=== PATIENT | female | born 1965 | race Two or more races ===

== ENCOUNTER 2025-08-05 13:46 | Emergency (ER) | payer MEDICARE, OTHER ==
[~2025-08-05] VITALS: Ht 167.6 cm; Wt 84.6 kg
--- NOTE | 2025-08-05 14:25 | ED.PDOC ---
[place]. trauma (HPI) HPI Comments 59-year-old right handed female with a history of thyroid disease brought in by family complaining of a right 4th finger tip amputation after attempting to separate fighting dogs. Patient denies any other injuries, and family has brought the amputated fingertip on ice. Patient states pain is moderate, and family were states they gave her p.o. 5/325 mg Percocet prior to arrival. Patient denies any numbness, weakness or limited range of motion. Chief Complaint: S/P AMPUTATION OF FINGER Time Seen by MD: 14:20 Reviewed notes: Nurses Notes, Medications, Allergies Allergies: Coded Allergies: NO KNOWN ALLERGIES (Unverified , 08/05/25) Home Meds Active Scripts Hydrocodone-Acetaminophen (Hydrocodone Bitartrate/AC 5-325 mg) 1 Tab Tab, 1 TAB PO Q6HP PRN, #20 TAB Prn breakthrough pain Prov:KATLIN SAUCEDO MD 08/05/25 Ibuprofen Micronized (Ibuprofen) 800 Mg Tab, 800 MG PO Q8HP PRN, #30 TAB Prn pain. Take with food. Prov:KATLIN SAUCEDO MD 08/05/25 Amoxicillin & Pot Clavulanate (AUGMENTIN TABLET) 875 Mg Tb, 875 MG PO BID for 7 Days, #14 TAB Prov:KATLIN SAUCEDO MD 08/05/25 Information Source: Patient Mode of Arrival: Ambulatory Severity: Moderate Timing: Minutes Duration: Since onset Prehospital treatment: Pain Meds (percocet) Location: (R) Hand (4th digit) Location of laceration: None Mechanism: Other (dog bite) Associated signs and symtoms: None Past Medical History PAST MEDICAL HISTORY: Thyroid Past Medical History (Other): Right wrist fracture Surgical History: Tubal Ligation Surgical History (Other): Partial small bowel resection due to abdominal trauma [employer] History: Denies all [employer] Hx Family History Family History: Unknown Social History Smoker: Non-Smoker Alcohol: Denies ETOH Use Drugs: Denies Drug Use Lives In: Home Constitutional: denies: chills, diaphoresis, fatigue, fever, malaise, sweats, weakness, others EENTM: denies: blurred vision, double vision, ear bleeding, ear discharge, ear drainage, ear pain, ear ringing, eye pain, eye redness, hearing loss, mouth pain, mouth swelling, nasal discharge, nose bleeding, nose congestion, nose pain, photophobia, tearing, throat pain, throat swelling, voice changes, others Respiratory: denies: cough, hemoptysis, orthopnea, SOB at rest, shortness of breath, SOB with excertion, stridor, wheezing, others Cardiovascular: denies: chest pain, dizzy spells, diaphoresis, Dyspnea on exertion, edema, irregular heart beat, left arm pain, lightheadedness, palpitations, PND, syncope, others Gastrointestinal: denies: abdomen distended, abdominal pain, blood streaked bowels, constipated, diarrhea, dysphagia, difficulty swallowing, hematemesis, melena, nausea, poor appetite, poor fluid intake, rectal bleeding, rectal pain, vomiting, others Genitourinary: denies: abnormal vagina bleeding, burning, dyspareunia, dysuria, flank pain, frequency, hematuria, incontinence, pain, , vagina discharge, urgency, others Neurological: denies: dizziness, fainting, headache, left sided numbness, left sided weakness, numbness, paresthesia, pre-existing deficit, right sided numbness, right sided weakness, seizure, speech problems, tingling, tremors, weakness, others Musculoskeletal: reports: others (right 4th digit); denies: back pain, gout, joint pain, joint swelling, muscle pain, muscle stiffness, neck pain Integumetry: denies: bruises, change in color, change in hair/nails, dryness, laceration, lesions, lumps, rash, wounds, others Allergic/Immunocompromised: denies: Difficulty Healing, Frequent Infections, Hives, Itching, others Hematologic/Lymphatic: denies: anemia, blood clots, easy bleeding, easy bruising, swollen glands, others Endocrine: denies: excessive hunger, excessive sweating, excessive thirst, excessive urination, flushing, intolerance to cold, intolerance to heat, unexplained weight gain, unexplained weight loss, others Psychiatric: denies: anxiety, bipolar disorder, depression, hopeless, panic disorder, schizophrenia, sleepless, suicidal, others All Other Systems: Reviewed and Negative Physical Exam General Appearance: No Apparent Distress HEENT: Other (Pupils and face symmetric. Moist mucous membranes.) Neck: Full Range of Motion, Normal Inspection Respiratory: Lungs Clear, No Accessory Muscle Use, No Respiratory Distress, Normal Breath Sounds Cardiovascular: No Edema, No JVD, Regular Rate/Rhythm Breast Exam: Deferred Gastrointestinal: Non Tender, Soft Genitalia: Deferred Pelvic: Deferred Rectal: Deferred Extremities: Other (Right 4th finger tip/nail avulsion with tender open wound on the distal aspect of the 4th finger, no exposed bone visualized. No tendon injury noted. Right hand neurovascularly intact.) Neurologic: Alert (Oriented x4), Normal Affect, Normal Mood, Other (Ambulatory) Cerebellar Function: NOT DONE Reflexes: NOT DONE Skin: Dry, Normal Color, Warm Lymphatic: NOT DONE Was a procedure done? Was a procedure done?: Yes Sedation Sedation?: No Other Procedure Procedure Right 4th finger aluminum splint application Indication Right 4th finger proximal phalanx fracture and distal phalanx tuft fracture Success An aluminum splint was applied to the volar aspect of the right 4th finger to include stabilization of the MCP joint. The right hand was neurovascularly intact after the splint was applied. Differential Diagnosis Multiple Trauma: Other (Avulsion, fracture, dislocation, among others) Neck Injury: N/A X-Ray, Labs, Meds, VS Vital Signs Date Time Temp Pulse Resp B/P (MAP) Pulse Ox O2 Delivery O2 Flow Rate FiO2 08/05/25 16:00 97.8 65 12 120/66 (84) 95 97.8 08/05/25 14:47 65 11 136/64 08/05/25 14:29 Room Air* 0 21 08/05/25 14:00 100 16 136/64 (88) 93 08/05/25 13:48 98.2 104 18 118/98 97 98.2 Lab Test 08/05/25 14:39 Range/Units White Blood Count 4.7 4.4-10.8 10^3/uL Red Blood Count 4.10 4.0-5.20 10^6/uL Hemoglobin 11.9 L 12.2-16.2 g/dL Hematocrit 36.2 36.0-46.0 % Mean Corpuscular Volume 88.3 80.0-100.0 fL Mean Corpuscular Hemoglobin 29.1 28.0-32.0 pg Mean Corpuscular Hemoglobin Concent 32.9 32.0-36.0 g/dL Red Cell Distribution Width 14.4 H 11.8-14.3 % Platelet Count 269 140-450 10^3/uL Mean Platelet Volume 8.0 6.9-10.8 fL Neutrophils (%) (Auto) 52.4 37.0-80.0 % Lymphocytes (%) (Auto) 34.2 10.0-50.0 % Monocytes (%) (Auto) 9.6 0.0-12.0 % Eosinophils (%) (Auto) 2.8 0.0-7.0 % Basophils (%) (Auto) 1.0 0.0-2.0 % Neutrophils # (Auto) 2.5 1.6-8.6 10 ^3/uL Lymphocytes # (Auto) 1.6 0.4-5.4 10 ^3/uL Monocytes # (Auto) 0.5 0-1.3 10 ^3/uL Eosinophils # (Auto) 0.1 0-0.8 10 ^3/uL Basophils # (Auto) 0 0-0.2 10 ^3/uL Nucleated Red Blood Cells 0.2 % Sodium Level 143 136-145 mmol/L Potassium Level 4.2 3.5-5.1 mmol/L Chloride Level 107 98-107 mmol/L Carbon Dioxide Level 29 20-31 mmol/L Anion Gap 7 5-15 Blood Urea Nitrogen 9 9-23 mg/dL Creatinine 0.94 0.550-1.02 mg/dL Glomerular Filtration Rate Calc 70 >90 mL/min BUN/Creatinine Ratio 9.6 L 10.0-20.0 Serum Glucose 99 74-106 mg/dL Calcium Level 9.2 8.7-10.4 mg/dL Current Medications Medications (Trade) Dose Ordered Sig/[facility] Route Start Time Stop Time Status Last Admin Morphine Sulfate 3 mg ONCE ONCE IV 08/05/25 14:30 08/05/25 14:31 DC 08/05/25 14:47 Diphtheria/ Tetanus/Acell Pertussis (Boostrix T-Dap) 0.5 ml ONCE ONCE IM 08/05/25 14:30 08/05/25 14:31 DC 08/05/25 14:48 PROCEDURE(s): RHAN - R HAND 3 VIEW XRAY REASON: 4th finger tip amp ORDER NUMBER(s): [id number], ACCESSION NUMBER(s): [id number] CLINICAL INDICATION: 4th finger tip amp ; right hand pain TECHNIQUE: 3 radiographic views of the right hand were obtained. Comparison: None FINDINGS/IMPRESSION: Age indeterminate fractures of the distal radius and ulnar styloid process. There is a deformity of the tuft of the right 4th distal phalanx. Possible intra-articular fracture of the right 4th proximal phalanx. X-Ray, Labs, Meds, VS Comment 59-year-old female with a history of thyroid disease here for evaluation of a right 4th finger tip avulsion due to a dog bite Vitals remarkable for heart rate 104, BP 118/98 Exam remarkable for right 4th finger tip soft tissue avulsion Rhythm strip independently interpreted by me: Sinus rhythm, rate 98, no ectopy. Right hand x-rays showed 4th finger distal phalanx tuft fracture and proximal p halanx intra-articular fracture CBC and basic metabolic panel unremarkable Patient treated with the following in the ED: Morphine 4 mg IV, Zofran 4 mg IV, Unasyn 3 g IV, Tdap 0.5 mL IM The wound was irrigated with copious amounts of normal saline/Betadine solution under high pressure, then dressed with Xeroform gauze and a bulky dressing. Aluminum splint was applied to the right 4th finger. The right hand was neurovascularly intact after wound cleansing and splinting. Pain was controlled with morphine. Case was discussed with Dr. Cash hand surgeon at [facility]. He agreed with the ED treatment, stated patient does not require hospital admission, and can follow-up as an outpatient with him or any other hand surgeon. Patient and family were advised regarding follow-up plan and are comfortable being discharged home. Time of 1ST Reevaluation: 14:50 Reevaluation 1ST: Unchanged Patient Education/Counseling: Diagnosis, Treatment Family Education/Counseling: Diagnosis, Treatment, Need For Follow Up Departure 1 Departure Time of Disposition: 16:41 Impression: Primary Impression: Fingertip avulsion Qualified Codes: S61.209A - Unspecified open wound of unspecified finger without damage to nail, initial encounter Additional Impressions: Phalanx, distal fracture of finger Qualified Codes: S62.664B - Nondisplaced fracture of distal phalanx of right ring finger, initial encounter for open fracture Proximal phalanx fracture of finger Qualified Codes: S62.644B - Nondisplaced fracture of proximal phalanx of right ring finger, initial encounter for open fracture Disposition: 01 HOME / SELF CARE / HOMELESS Condition: Stable Additional Instructions: Follow-up with Dr. Cash, hand surgeon in 1-2 days. Call for appointment. . You have been provided with a CD copy of your hand x-rays. I have enclosed the report below to bring to your follow-up appointment. I have prescribed antibiotics to prevent infection, as well as pain medicine. Return to ER for fever, worsening pain, swelling, wound discharge, or any other concern. [place] [address] Ph: [phone] DIAGNOSTIC IMAGING Diagnostic Imaging Report : [id number] Signed PATIENT: ELISE ROB ACCT: [id number] UNIT: [id number] : 1965 LOC: ER ROOM / BED: / AGE / SEX: 59 / F ADM STATUS: REG ER SERVICE 1420 ORDERING PHYSICIAN: KATLIN SAUCEDO MD PROCEDURE(s): RHAN - R HAND 3 VIEW XRAY REASON: 4th finger tip amp ORDER NUMBER(s): [id number], ACCESSION NUMBER(s): [id number] CLINICAL INDICATION: 4th finger tip amp ; right hand pain TECHNIQUE: 3 radiographic views of the right hand were obtained. Comparison: None FINDINGS/IMPRESSION: Age indeterminate fractures of the distal radius and ulnar styloid process. There is a deformity of the tuft of the right 4th distal phalanx. Possible intra-articular fracture of the right 4th proximal phalanx. e-Prescriptions Hydrocodone-Acetaminophen (Hydrocodone Bitartrate/AC 5-325 mg) 1 Tab Tab 1 TAB PO Q6HP PRN, #20 TAB Prn breakthrough pain Prov: KATLIN SAUCEDO MD 08/05/25 Ibuprofen Micronized (Ibuprofen) 800 Mg Tab 800 MG PO Q8HP PRN, #30 TAB Prn pain. Take with food. Prov: KATLIN SAUCEDO MD 08/05/25 Amoxicillin & Pot Clavulanate (AUGMENTIN TABLET) 875 Mg Tb 875 MG PO BID for 7 Days, #14 TAB Prov: KATLIN SAUCEDO MD 08/05/25 Discharged With: Relative Critical Care Note Critical Care Time?: No Stability Stability form required: No Heart Score Heart Score: Heart Score Response (Comments) Value History N/A 0 EKG N/A 0 Age N/A 0 Risk Factors N/A 0 Troponin N/A 0 Total 0 I personally scribed for KATLIN SAUCEDO MD ([email or web address]) on 08/05/25 at 14:24. Electronically submitted by Charlene Whitt ([email or web address]). I personally scribed for KATLIN SAUCEDO MD ([email or web address]) on 08/05/25 at 15:01. Electronically submitted by Charlene Whitt ([email or web address]). I personally scribed for KATLIN SAUCEDO MD ([email or web address]) on 08/05/25 at 15:01. Electronically submitted by Charlene Whitt ([email or web address]). KATLIN SAUCEDO MD Aug 05, 2025 14:24
[2025-08-05] MEDS: MORPHINE SULFATE 4 MG/ML SYR/VIAL IV ONE (14:47)
[2025-08-05] MEDS: TETANUS-DIPTH-ACEL PERTUSSIS 0.5ML SYR Tdap IM ONE (14:48)
--- NOTE | 2025-08-05 14:57 | DVH ---
CLINICAL INDICATION: 4th finger tip amp ; right hand pain TECHNIQUE: 3 radiographic views of the right hand were obtained. Comparison: None FINDINGS/IMPRESSION: Age indeterminate fractures of the distal radius and ulnar styloid process. There is a deformity of t he tuft of the right 4th distal phalanx. Possible intra-articular fracture of the right 4th proximal phalanx.
[2025-08-05 15:05] LABS: Chloride 107 mmol/L (98-107); Potassium 4.2 mmol/L (3.5-5.1); Sodium 143 mmol/L (136-145)
[2025-08-05 15:06] LABS: Anion Gap 7 (5-15); Calcium 9.2 mg/dL (8.7-10.4); Carbon Dioxide 29 mmol/L (20-31)
[2025-08-05 15:08] LABS: Hematocrit 36.2 % (36.0-46.0); Hemoglobin 11.9 g/dL (12.2-16.2); Mean Corpuscular Hemoglobin 29.1 pg (28.0-32.0); Mean Corpuscular Volume 88.3 fL (80.0-100.0); Nucleated Red Blood Cells % 0.2 %
[2025-08-05 15:11] LABS: BUN/Creatinine Ratio 9.6 (10.0-20.0); Blood Urea Nitrogen 9 mg/dL (9-23); Glucose 99 mg/dL (74-106)
[2025-08-05 16:00] VITALS: BP 120/66; PULSE 65; RESP 12; TEMP 97.8; O2SAT 95
[2025-08-05] MEDS ORDERED: AUG875T PO (16:47)
[2025-08-05] MEDS ORDERED: HYDR-4902 PO (16:47)
[2025-08-05] MEDS ORDERED: IBUP-1455 PO (16:47)
== END 2025-08-05 18:00 | disposition home or self-care (01) ==
LOC: ER 13:46
DX: S62.632A Displaced fracture of distal phalanx of right middle finger, initial encounter for closed fracture (principal); S62.612A Displaced fracture of proximal phalanx of right middle finger, initial encounter for closed fracture; S61.302A Unspecified open wound of right middle finger with damage to nail, initial encounter; Z89.021 Acquired absence of right finger(s); Z98.51 Tubal ligation status; W54.0XXA Bitten by dog, initial encounter; Y93.89 Activity, other specified; Y92.89 Other specified places as the place of occurrence of the external cause; Y99.8 Other external cause status
CPT/HCPCS: 29130; 36415; 73130; 80048; 85025; 90471; 90715; 96374; 99284; J2270